=== PATIENT | female | born 1945 | race Caucasian/White ===

== ENCOUNTER 2023-07-08 05:47 | Inpatient (IN) | payer BC, MEDICAID ==
[2023-07-01 15:36] LABS: BASOPHILS % (AUTO) 0.4 % (0-1); EOSINOPHILS # (AUTO) 0.1 X10'3 (0-0.9); EOSINOPHILS % (AUTO) 1.8 % (0-6); LYMPHOCYTES # (AUTO) 2.4 X10'3 (1.1-4.8); LYMPHOCYTES % (AUTO) 29.7 % (21-51); MEAN CORPUSCULAR HEMOGLOBIN 31.4 PG (27.0-31.0); MEAN CORPUSCULAR HGB CONC 33.3 g/dL (33.0-36.5); MEAN CORPUSCULAR VOLUME 94.3 FL (78-98); MEAN PLATELET VOLUME 7.7 FL (7.4-10.4); MONOCYTES # (AUTO) 1.1 X10'3 (0-0.9); MONOCYTES % (AUTO) 13.6 % (2-12); NEUTROPHILS # (AUTO) 4.4 X10'3 (1.8-7.7); NEUTROPHILS % (AUTO) 54.5 % (42-75); PRE OP HEMOGLOBIN 14.7 g/dL (12.0-16.0); PRE OP PLATELET COUNT 245 X10'3 (140-440); RED BLOOD COUNT 4.67 X10'6 (4.20-5.60); RED CELL DISTRIBUTION WIDTH 14.6 % (11.5-14.5)
[2023-07-01 15:55] LABS: ALBUMIN 3.1 G/DL (3.4-5.0); ALBUMIN/GLOBULIN RATIO 0.7 (1.1-1.5); ALKALINE PHOSPHATASE 120 IU/L (46-116); BLOOD UREA NITROGEN 21 MG/DL (7-18); BUN/CREATININE RATIO 18.3 (10.0-20.0); CALCIUM 8.7 MG/DL (8.5-10.1); CHLORIDE 104 MMOL/L (99-107); CREATININE 1.15 MG/DL (0.40-0.90); PRE OP ALT 36 U/L (30-65); PRE OP ANION GAP 7 (8-16); PRE OP AST 29 U/L (10-37); PRE OP BILIRUB, TOTAL 0.4 MG/DL (0.0-1.0); PRE OP GLUCOSE 95 MG/DL (70-104); PRE OP POTASSIUM 3.8 MMOL/L (3.4-5.1); PRE OP SODIUM 138 MMOL/L (135-145); TOTAL CARBON DIOXIDE 26.7 MMOL/L (24-32); TOTAL PROTEIN 7.7 G/DL (6.4-8.2); eGFR 46 ML/MIN
[2023-07-08] VITALS (15 sets, daily range): BP systolic 139–167; BP diastolic 64–67; PULSE 50–96; RESP 16–24; TEMP 97–98.8; O2SAT 81–96
[~2023-07-08] VITALS: Ht 165.1 cm; Wt 91.7 kg
[~2023-07-08 05:47] MED LIST: ACET-1025 PO; ATOR20TA66 PO; CALCIUM; CLOP75TA34 PO; COQ10; DOCUMENT DATE & TIME OF BETA-BLOCKER PO ONE; EZET10TA48 PO; FAMO20TA8 PO; FISH OIL; FLUO20TA28 PO; FLUT1BLS4 INH; FURO20TA4 PO; GLUC-95 PO; HYDR-4070 PO; INDLA60C PO; INDOCYANINE GREEN 25 MG/10 ML VIAL IV ONE; IRBE300T18 PO; MELATONIN; MVI; POTASSIUM GLUCONATE; PRIM50TA5 PO; albuterol 2.5 MG/3 ML nebule NEB ONE; clindamycin-Cleocin 900mg/D5W 50 ML IV ONE; famotidine 20mg tablet PO ONE; ringers solution, lacted 1,000 ML IV SCH
[2023-07-08] MEDS ORDERED: LIDOcaine 1% (10mg/ml)w/preservative inj. 20ml MDV ONE (06:43)
[2023-07-08] MEDS ORDERED: BUPIVAcaine/PF 2.5mg/ml (0.25%) 10ml vial ONE (06:43)
[2023-07-08] MEDS ORDERED: acetaminophen 325mg tablet PO PRN (12:20)
[2023-07-08] MEDS ORDERED: ondansetron/PF 4mg/2ml inj IV PRN (12:20)
[2023-07-08] MEDS ORDERED: magnesium 2GM in 50ml NS 50 ML IV PRN (12:20)
[2023-07-08] MEDS ORDERED: magnesium Cl slow-release 64mg tablet PO PRN (12:20)
[2023-07-08] MEDS ORDERED: mag hydrox/Alum hydrox/simeth 30ml oral suspension PO PRN (12:20)
[2023-07-08] MEDS ORDERED: magnesium 4gm in 100ml NS 100 ML IV PRN (12:20)
[2023-07-08] MEDS ORDERED: magnesium hydroxide 30ml (MOM) UD suspension PO PRN (12:20)
[2023-07-08] MEDS ORDERED: ondansetron 4mg rapidly disintigrating tab PO PRN (12:20)
[2023-07-08] MEDS ORDERED: potassium Cl 40MEQ/1/2NS 520ml 520 ML IV PRN (12:20)
[2023-07-08] MEDS ORDERED: potassium Cl 20 mEq SR tablet PO PRN ×2 (12:20)
[2023-07-08] MEDS ORDERED: HYDROcodone/acetaminophen 5mg/325mg tablet PO PRN (12:20)
--- NOTE | 2023-07-08 13:00 | NUR ---
Patient in room PAS IN 901. I have received report from carlos ellis and had the opportunity to ask questions and assume patient care.
--- NOTE | 2023-07-08 13:10 | NUR ---
RT TX ORDERED FOR PRE-OP, RT HERE TO GIVE TX AND CHECKED PTS SA02, IT WAS 82-84% ON ROOM AIR, RT CHECKED IT AGAINST HER OXIMETER AND CAME UP W/THE SAME O2 SATS, BREATHING TX GIVEN W/O MUCH IMPROVEMENT TO 02 SAT. PT PLACED ON 2 LITERS NC FOR SA02 94%. DR BAUER AND DR SHABAZZ UPDATED, BOTH MD'S IN TO SEE PT, DECISION TO CANCEL SURGERY AND HAVE PT ADMITTED PER HOSPITALIST. DR AVERY IN TO SEE PT. PT WAS IN PAS UNTIL 13:00 ON NC 2 LITERS ON CONTINUOUS PULSE OX W/SA02 92-96%. PT UP FOR VOID X 2 WHILE IN PAS. PT TRANSFERRED W/GLASSES AND CLOTHING VIA W/C ON 02, 2 LITERS TO ROOM 4012B. BLL, CALL LIGHT GIVEN, SIDE RAILS UP X 2, RECEIVING RN NOTIFIED OF PTS ARRIVAL. Addendum: 07/08/23 at 1404 by Asmita Hidalgo RN Amended: Links added.
--- NOTE | 2023-07-08 13:53 | NUR ---
let resident know that pts bp was 167/65 with a hr of 56. he said we can order a hydralazine po 50 mg once until the pts med rec is completed. he is going to let MD know about this.
[2023-07-08] MEDS ORDERED: hydrALAZINE 25 MG tablet PO ONE (13:55)
[2023-07-08] MEDS ORDERED: CefTRIAXone/D5W-Rocephin 1gm 50 ML IV ONE (14:10)
[2023-07-08] MEDS ORDERED: methylPREDNISolone sod succ 125mg/2ml vial IV ONE (14:10)
[2023-07-08] MEDS ORDERED: ipratropium/albuterol 3ml nebule NEB PRN (14:10)
[2023-07-08] MEDS ORDERED: non-formulary drug (Acetaminophen (Tylenol Extra Strength) 2 TAB) PO PRN (14:25)
[2023-07-08] MEDS: normal saline 1000ml 1,000 ML IV SCH (14:25)
--- NOTE | 2023-07-08 14:28 | NUR ---
waiting on iv abx from pharmacy, they said they are working on it now
[2023-07-08] MEDS: nicotine 21mg patch - 24 hr TD SCH (14:36)
[2023-07-08] MEDS ORDERED: ipratropium/albuterol 3ml nebule NEB SCH (15:00)
[2023-07-08] MEDS: ipratropium/albuterol 3ml nebule NEB SCH ×3 (15:25→23:39)
[2023-07-08] MEDS: azithromycin/NS 500mg/250ml 250 ML IV SCH (15:52)
--- NOTE | 2023-07-08 17:07 | NUR ---
per pharmacist it is ok to give Rocephin when zithro is done since it is daily. medications were not available for time of order.
[2023-07-08] MEDS: acetaminophen 325mg tablet PO PRN (17:37)
--- NOTE | 2023-07-08 19:02 | NUR ---
Problems reprioritized. Patient report given, questions answered & plan of care reviewed with clarence lima rn.
--- NOTE | 2023-07-08 19:05 | NUR ---
Patient in room ORTHO 4012. I have received report from TYM RN and had the opportunity to ask questions and assume patient care.
[2023-07-08] MEDS: K and/or MAG REPLACEMENT MC SCH (20:00)
[2023-07-08] MEDS: methylPREDNISolone sod succ 125mg/2ml vial IV SCH (20:56)
[2023-07-08] MEDS ORDERED: GLUCOSAMINE HCL PO SCH (21:00)
[2023-07-08] MEDS ORDERED: CHONDR SU A NA PO SCH (21:00)
[2023-07-08] MEDS: Fluticasone/Umeclidin/Vilanter (Trelegy Ellipta 100-62.5-25) PO SCH (21:00)
[2023-07-08] MEDS: FLUoxetine 20mg capsule PO SCH (21:01)
[2023-07-08] MEDS: atorvastatin 20mg tablet PO SCH (21:02)
[2023-07-08] MEDS: Melatonin 3mg tablet PO SCH (21:02)
[2023-07-08] MEDS: hydrALAZINE 25 MG tablet PO SCH (21:03)
[2023-07-08] MEDS: primidone 50mg tablet PO SCH (21:04)
[2023-07-08] MEDS: ezetimibe 10mg tablet PO SCH (21:08)
[2023-07-09] VITALS (19 sets, daily range): BP systolic 120–157; BP diastolic 47–63; PULSE 56–75; RESP 16–20; TEMP 97.3–98.6; O2SAT 89–98
[2023-07-09] MEDS: methylPREDNISolone sod succ 125mg/2ml vial IV SCH ×3 (02:34→14:06)
[2023-07-09] MEDS: ipratropium/albuterol 3ml nebule NEB SCH ×6 (03:00→23:34)
--- NOTE | 2023-07-09 06:15 | NUR ---
Problems reprioritized. Patient report given, questions answered & plan of care reviewed with NEMESIO ABRAHAM.
--- NOTE | 2023-07-09 06:30 | NUR ---
Patient in room ORTHO 4012. I have received report from Eun Haq RN and had the opportunity to ask questions and assume patient care.
[2023-07-09] MEDS: CefTRIAXone/D5W-Rocephin 1gm 50 ML IV SCH (07:44)
[2023-07-09] MEDS: normal saline 1000ml 1,000 ML IV SCH (07:45)
[2023-07-09] MEDS ORDERED: famotidine 20mg tablet PO SCH (08:00)
[2023-07-09] MEDS: K and/or MAG REPLACEMENT MC SCH ×2 (08:00→20:00)
--- NOTE | 2023-07-09 08:16 | NUR ---
Student documentation: I have reviewed all interventions, assessments performed and documented by [facility] [employer] Student. Student Medication Administration: For medication-passes by student of [facility] [employer] program in the time frame of 0630 to 1300, medications were reviewed, dispensed, administered and documented per hospital policy. Addendum: 07/09/23 at 1805 by Josy Arreola RN Patient in room ORTHO 4012. I have received report from Eun Haq RN and had the opportunity to ask questions and assume patient care.
[2023-07-09 08:48] LABS: BASOPHILS % (AUTO) 0.1 % (0-1); EOSINOPHILS % (AUTO) 0 % (0-6); HEMATOCRIT 41.6 % (35.0-45.0); HEMOGLOBIN 13.5 g/dl (12.0-16.0); LYMPHOCYTES # (AUTO) 1.6 X10'3 (1.1-4.8); LYMPHOCYTES % (AUTO) 13.2 % (21-51); MEAN CORPUSCULAR HEMOGLOBIN 30.6 PG (27.0-31.0); MEAN CORPUSCULAR HGB CONC 32.5 g/dL (33.0-36.5); MEAN CORPUSCULAR VOLUME 94.1 FL (78-98); MONOCYTES # (AUTO) 0.1 X10'3 (0-0.9); MONOCYTES % (AUTO) 1.1 % (2-12); NEUTROPHILS # (AUTO) 10.4 X10'3 (1.8-7.7); NEUTROPHILS % (AUTO) 85.6 % (42-75); PLATELET COUNT 259 X10'3 (140-440); RED BLOOD COUNT 4.43 X10'6 (4.20-5.60); RED CELL DISTRIBUTION WIDTH 14.5 % (11.5-14.5); WHITE BLOOD COUNT 12.2 X10'3 (4.5-11.0)
[2023-07-09] MEDS: propranolol LA 60 MG cap.SA.24H PO SCH (09:09)
[2023-07-09] MEDS: azithromycin/NS 500mg/250ml 250 ML IV SCH (09:10)
[2023-07-09 09:12] LABS: ALBUMIN 2.8 G/DL (3.4-5.0); ANION GAP 12 (8-16); BLOOD UREA NITROGEN 19 MG/DL (7-18); BUN/CREATININE RATIO 18.4 (10.0-20.0); CHLORIDE 104 MMOL/L (99-107); CREATININE 1.03 MG/DL (0.40-0.90); GLUCOSE 152 MG/DL (70-104); MAGNESIUM 2.3 MG/DL (1.5-2.4); POTASSIUM 4.2 MMOL/L (3.5-5.1); SODIUM 137 MMOL/L (135-145); TOTAL CARBON DIOXIDE 21.1 MMOL/L (24-32); eCRCL 41 ML/MIN; eGFR 52 ML/MIN
[2023-07-09] MEDS: hydrALAZINE 25 MG tablet PO SCH ×2 (09:13→21:47)
[2023-07-09] MEDS: losartan 50mg tablet PO SCH (09:14)
[2023-07-09] MEDS: furosemide 20MG tablet PO SCH (09:15)
[2023-07-09] MEDS: primidone 50mg tablet PO SCH ×2 (09:16→21:47)
[2023-07-09] MEDS: acetaminophen 325mg tablet PO PRN (10:32)
[2023-07-09] MEDS: nicotine 21mg patch - 24 hr TD SCH (10:34)
[2023-07-09] MEDS: HYDROcodone/acetaminophen 10/325mg tab PO PRN (14:41)
--- NOTE | 2023-07-09 18:30 | NUR ---
Patient in room ORTHO 4012. I have received report from NEMESIO ABRAHAM and had the opportunity to ask questions and assume patient care.
[2023-07-09] MEDS: Fluticasone/Umeclidin/Vilanter (Trelegy Ellipta 100-62.5-25) PO SCH (19:52)
[2023-07-09] MEDS: atorvastatin 20mg tablet PO SCH (21:45)
[2023-07-09] MEDS: FLUoxetine 20mg capsule PO SCH (21:48)
[2023-07-09] MEDS: Melatonin 3mg tablet PO SCH (21:58)
[2023-07-09] MEDS: ezetimibe 10mg tablet PO SCH (22:01)
[2023-07-09] MEDS: methylPREDNISolone sod succ/PF 40mg inj. IV SCH (22:58)
[2023-07-10] VITALS (29 sets, daily range): BP systolic 128–189; BP diastolic 57–80; PULSE 53–97; RESP 12–27; TEMP 97.7–98.3; O2SAT 81–98
[2023-07-10] MEDS: normal saline 1000ml 1,000 ML IV SCH ×2 (03:02→20:59)
[2023-07-10] MEDS: ipratropium/albuterol 3ml nebule NEB SCH ×6 (03:16→23:17)
--- NOTE | 2023-07-10 06:28 | NUR ---
Problems reprioritized. Patient report given, questions answered & plan of care reviewed with NEMESIO ABRAHAM.
--- NOTE | 2023-07-10 06:47 | NUR ---
Patient in room ORTHO 4012. I have received report from Eun Haq RN and had the opportunity to ask questions and assume patient care.
[2023-07-10] MEDS: CefTRIAXone/D5W-Rocephin 1gm 50 ML IV SCH (07:20)
[2023-07-10 07:21] LABS: BASOPHILS # (AUTO) 0.1 X10'3 (0-0.2); BASOPHILS % (AUTO) 0.3 % (0-1); EOSINOPHILS % (AUTO) 0 % (0-6); HEMATOCRIT 39.4 % (35.0-45.0); HEMOGLOBIN 12.8 g/dl (12.0-16.0); LYMPHOCYTES # (AUTO) 2.1 X10'3 (1.1-4.8); LYMPHOCYTES % (AUTO) 12.3 % (21-51); MEAN CORPUSCULAR HEMOGLOBIN 30.6 PG (27.0-31.0); MEAN CORPUSCULAR HGB CONC 32.6 g/dL (33.0-36.5); MEAN PLATELET VOLUME 7.8 FL (7.4-10.4); MONOCYTES # (AUTO) 0.8 X10'3 (0-0.9); MONOCYTES % (AUTO) 4.8 % (2-12); NEUTROPHILS # (AUTO) 13.8 X10'3 (1.8-7.7); NEUTROPHILS % (AUTO) 82.6 % (42-75); PLATELET COUNT 243 X10'3 (140-440); RED CELL DISTRIBUTION WIDTH 14.5 % (11.5-14.5); WHITE BLOOD COUNT 16.7 X10'3 (4.5-11.0)
[2023-07-10] MEDS: losartan 50mg tablet PO SCH (07:21)
[2023-07-10] MEDS: furosemide 20MG tablet PO SCH (07:21)
[2023-07-10] MEDS: hydrALAZINE 25 MG tablet PO SCH ×2 (07:22→22:26)
[2023-07-10] MEDS: primidone 50mg tablet PO SCH ×2 (07:22→22:25)
[2023-07-10] MEDS: propranolol LA 60 MG cap.SA.24H PO SCH (07:22)
[2023-07-10] MEDS: methylPREDNISolone sod succ/PF 40mg inj. IV SCH ×2 (07:24→22:45)
[2023-07-10 07:32] LABS: APTT 28 SECONDS (22-32)
[2023-07-10 07:42] LABS: ALANINE AMINOTRANSFERASE 26 U/L (12-78); ALBUMIN 2.7 G/DL (3.4-5.0); ALBUMIN/GLOBULIN RATIO 0.7 (1.1-1.5); ALKALINE PHOSPHATASE 98 IU/L (46-116); ANION GAP 8 (8-16); ASPARTATE AMINO TRANSFERASE 20 U/L (10-37); BILIRUBIN,TOTAL 0.3 MG/DL (0.1-1.0); BLOOD UREA NITROGEN 22 MG/DL (7-18); BUN/CREATININE RATIO 22.7 (10.0-20.0); CALCIUM 8.6 MG/DL (8.5-10.1); CHLORIDE 105 MMOL/L (99-107); CREATININE 0.97 MG/DL (0.40-0.90); GLUCOSE 135 MG/DL (70-104); MAGNESIUM 2.3 MG/DL (1.5-2.4); POTASSIUM 4.2 MMOL/L (3.5-5.1); SODIUM 138 MMOL/L (135-145); TOTAL CARBON DIOXIDE 24.8 MMOL/L (24-32); TOTAL PROTEIN 6.8 G/DL (6.4-8.2); eCRCL 43 ML/MIN; eGFR 56 ML/MIN
[2023-07-10] MEDS: K and/or MAG REPLACEMENT MC SCH ×2 (07:55→20:00)
[2023-07-10] MEDS: azithromycin/NS 500mg/250ml 250 ML IV SCH (09:08)
[2023-07-10] MEDS: nicotine 21mg patch - 24 hr TD SCH (09:09)
[2023-07-10] MEDS ORDERED: INDOCYANINE GREEN 25 MG/10 ML VIAL IV ONE (12:20)
[2023-07-10] MEDS ORDERED: ondansetron/PF 4mg/2ml inj IV PRN (13:10)
[2023-07-10] MEDS ORDERED: morphine 2 MG/ML inj. syringe IV PRN (13:10)
[2023-07-10] MEDS ORDERED: morphine 4 MG/ML inj SYRINge IV PRN (13:10)
[2023-07-10] MEDS ORDERED: ringers solution, lacted 1,000 ML IV SCH (13:10)
[2023-07-10] MEDS ORDERED: fentaNYL/PF 50MCG/1 ML 2ML syringe IV PRN ×2 (13:10)
[2023-07-10] MEDS ORDERED: labetalol 20mg/4ml (5mg/ml) syringe IV PRN (13:10)
[2023-07-10] MEDS ORDERED: hydrALAZINE 20mg/ml inj. IV PRN (13:10)
[2023-07-10] MEDS ORDERED: desflurane 240ml liquid inh. IH ONE (15:25)
[2023-07-10] MEDS ORDERED: dexamethasone sod phosphate 10mg/ml inj ONE (15:25)
[2023-07-10] MEDS ORDERED: ondansetron/PF 4mg/2ml inj ONE (15:35)
[2023-07-10] MEDS ORDERED: rocuronium 10mg/ml inj IV ONE (15:35)
[2023-07-10] MEDS ORDERED: fentaNYL/PF 50MCG/1 ML 2ML syringe ONE (15:35)
[2023-07-10] MEDS ORDERED: LIDOcaine 1%/PF 5ML 10 MG/ML VIAL ONE (15:35)
[2023-07-10] MEDS ORDERED: propofol inj 20 ML IV ONE (15:35)
[2023-07-10] MEDS ORDERED: sugammadex 200mg/2ml injection IV ONE (15:44)
[2023-07-10] MEDS ORDERED: LIDOcaine 1% (10mg/ml)w/preservative inj. 20ml MDV ONE (15:44)
[2023-07-10] MEDS ORDERED: BUPIVAcaine/PF 2.5mg/ml (0.25%) 10ml vial ONE (15:44)
[2023-07-10] MEDS ORDERED: LIDOcaine 1% 30ml preserv. free vial IJ ONE (16:11)
--- NOTE | 2023-07-10 16:44 | NUR ---
Received from OR via BED, accompanied by Anesthesiologist DR. POTTER and report given by Anesthesiologist. PATIENT WAKING UP, NO S/S OF PAIN, V/S WNL, SCD ON, 20G TO LFA, ABDOMEN LAP SITE CLEAN W/ NO S/S OF COMPLICATIONS
--- NOTE | 2023-07-10 17:24 | NUR ---
PATIENT HAS MET ALL CRITERIA FOR TRANSFER TO THE FLOOR. VSS. PT DENIES PAIN. DRESSINGS [facility]I INTACT. SCDS ON RIGHT LEG. BED LOW, CALL LIGHT PRESENT AND 2 RAILS UP. RN PRESENT TO ACCEPT CARE OF PATIENT AND REPORT HAS BEEN CALLED. ALL QUESTIONS ANSWERED TO ACCEPTING RNMARLYN.
[2023-07-10] MEDS: HYDROcodone/acetaminophen 10/325mg tab PO PRN ×2 (17:43→22:25)
--- NOTE | 2023-07-10 17:47 | NUR ---
Unable to give 1500 SVN treatment due to patient being in surgery.
[2023-07-10] MEDS: Fluticasone/Umeclidin/Vilanter (Trelegy Ellipta 100-62.5-25) PO SCH (21:00)
[2023-07-10] MEDS: atorvastatin 20mg tablet PO SCH (22:25)
[2023-07-10] MEDS: Melatonin 3mg tablet PO SCH (22:25)
[2023-07-10] MEDS: ezetimibe 10mg tablet PO SCH (22:27)
[2023-07-10] MEDS: docusate sod 100mg capsule PO PRN (22:27)
[2023-07-10] MEDS: FLUoxetine 20mg capsule PO SCH (22:27)
[2023-07-11] VITALS (13 sets, daily range): BP systolic 154–177; BP diastolic 53–68; PULSE 51–65; RESP 16–22; TEMP 97–98.7; O2SAT 91–97
[2023-07-11] MEDS: ipratropium/albuterol 3ml nebule NEB SCH ×4 (03:17→15:28)
[2023-07-11 06:45] LABS: BASOPHILS % (AUTO) 0.4 % (0-1); EOSINOPHILS % (AUTO) 0 % (0-6); HEMATOCRIT 39.5 % (35.0-45.0); LYMPHOCYTES # (AUTO) 1.7 X10'3 (1.1-4.8); LYMPHOCYTES % (AUTO) 12.9 % (21-51); MEAN CORPUSCULAR HEMOGLOBIN 31.2 PG (27.0-31.0); MEAN CORPUSCULAR HGB CONC 32.8 g/dL (33.0-36.5); MEAN CORPUSCULAR VOLUME 95.1 FL (78-98); MEAN PLATELET VOLUME 7.3 FL (7.4-10.4); MONOCYTES # (AUTO) 0.5 X10'3 (0-0.9); MONOCYTES % (AUTO) 4.1 % (2-12); NEUTROPHILS # (AUTO) 10.6 X10'3 (1.8-7.7); NEUTROPHILS % (AUTO) 82.6 % (42-75); PLATELET COUNT 237 X10'3 (140-440); RED BLOOD COUNT 4.15 X10'6 (4.20-5.60); RED CELL DISTRIBUTION WIDTH 14.9 % (11.5-14.5); WHITE BLOOD COUNT 12.8 X10'3 (4.5-11.0)
[2023-07-11 06:56] LABS: ALBUMIN 2.7 G/DL (3.4-5.0); ANION GAP 7 (8-16); BLOOD UREA NITROGEN 25 MG/DL (7-18); BUN/CREATININE RATIO 22.7 (10.0-20.0); CALCIUM 8.6 MG/DL (8.5-10.1); CHLORIDE 105 MMOL/L (99-107); GLUCOSE 123 MG/DL (70-104); MAGNESIUM 2.3 MG/DL (1.5-2.4); POTASSIUM 4.2 MMOL/L (3.5-5.1); SODIUM 139 MMOL/L (135-145); TOTAL CARBON DIOXIDE 27.3 MMOL/L (24-32); eCRCL 38 ML/MIN; eGFR 48 ML/MIN
--- NOTE | 2023-07-11 07:15 | NUR ---
Patient in room ORTHO 4012. I have received report from Eun Haq RN and had the opportunity to ask questions and assume patient care.
[2023-07-11] MEDS: K and/or MAG REPLACEMENT MC SCH (07:52)
[2023-07-11] MEDS ORDERED: azithromycin 250mg tablet PO SCH (08:00)
[2023-07-11] MEDS ORDERED: famotidine 20mg tablet PO SCH (08:00)
[2023-07-11] MEDS: furosemide 20MG tablet PO SCH (08:01)
[2023-07-11] MEDS: CefTRIAXone/D5W-Rocephin 1gm 50 ML IV SCH (08:03)
[2023-07-11] MEDS: methylPREDNISolone sod succ/PF 40mg inj. IV SCH (08:03)
[2023-07-11] MEDS: HYDROcodone/acetaminophen 10/325mg tab PO PRN (08:04)
[2023-07-11] MEDS: docusate sod 100mg capsule PO PRN (08:04)
[2023-07-11] MEDS: hydrALAZINE 25 MG tablet PO SCH (08:07)
[2023-07-11] MEDS: losartan 50mg tablet PO SCH (08:08)
[2023-07-11] MEDS: propranolol LA 60 MG cap.SA.24H PO SCH (08:09)
[2023-07-11] MEDS: primidone 50mg tablet PO SCH (08:22)
[2023-07-11] MEDS: nicotine 21mg patch - 24 hr TD SCH (09:44)
[2023-07-11] MEDS: normal saline 1000ml 1,000 ML IV SCH (13:01)
--- NOTE | 2023-07-11 13:14 | NUR ---
O2 Sat at rest on room air:84% If below 89%: Recovery O2 Sat at rest on _4__LPM:__89_%:___% via nc (mask/nasal cannula, etc..) No further documentation is necessary. If O2 Sat did not drop below 89% on room air,ambulate patient on room air. O2 Sat while ambulating on room air:___% Recovery O2 Sat while ambulating on ___LPM:___% No further documentation is necessary. If patient does not drop below 89% while ambulating, he/she does not qualify for home O2.
--- NOTE | 2023-07-11 13:34 | NUR ---
Initial: Pt admit for elective laparoscopic cholecystectomy. Per resident progress notes pt with acute on chronic hypoxemic respiratory failure likely secondary to COPD exacerbation, RLL infiltrate, NORIS, and cholelithiasis. Pt currently POD #1 s/p laparoscopic cholecystectomy. Diet has fluctuated NPO versus heart healthy throughout LOS. When pt has a diet she eats well, documented with average 78% PO intake of meals which is sufficient in meeting estimated nutrient needs. LBM 07/07 per EMR. Pt does not have routine bowel care available though has received PRN Colace 07/10 and 07/11 per EMR. PRN MoM also available. D/w dietary to send prunes and prune juice with next meal to further assist with a BM. Will continue to follow and monitor need for additional nutrition intervention. Recommendations: 1) Continue heart healthy diet 2) Routine and PRN bowel care 3) Weekly scaled weights Addendum: 07/11/23 at [address] Amended: Links added.
[2023-07-11] MEDS ORDERED: NICO-687 TD (15:31)
[2023-07-11] MEDS ORDERED: LEVO-65 PO (15:34)
--- NOTE | 2023-07-11 19:28 | NUR ---
Pts discharge instructions given to pt and family memberc they have no questions. Pt d/cd with home o2 and all belongings, IV dcd with canula intact.
[2023-07-11] MEDS ORDERED: methylPREDNISolone sod succ/PF 40mg inj. IV SCH (20:00)
== END 2023-07-11 19:28 | disposition home health service (06) | DRG 417 ==
LOC: PAS 05:47 → PAS IN 10:12 → ORTHO 4S 13:30
PROVIDERS: ADMIT Surgery; ATTEND Surgery
PROC: 8E0W4CZ Robotic Assisted Procedure of Trunk Region, Percutaneous Endoscopic Approach (ICD-10-PCS; 2023-07-10)
PROC: BF522Z0 Other Imaging of Gallbladder using Fluorescing Agent, Intraoperative (ICD-10-PCS; 2023-07-10)
PROC: 0FT44ZZ Resection of Gallbladder, Percutaneous Endoscopic Approach (ICD-10-PCS; principal; 2023-07-10 15:25)
DX: K80.20 Calculus of gallbladder without cholecystitis without obstruction (principal); J18.9 Pneumonia, unspecified organism; J96.21 Acute and chronic respiratory failure with hypoxia; N17.0 Acute kidney failure with tubular necrosis; J44.1 Chronic obstructive pulmonary disease with (acute) exacerbation; J44.0 Chronic obstructive pulmonary disease with (acute) lower respiratory infection; E78.5 Hyperlipidemia, unspecified; I10 Essential (primary) hypertension; Z66 Do not resuscitate; I73.9 Peripheral vascular disease, unspecified; I25.10 Atherosclerotic heart disease of native coronary artery without angina pectoris; F17.210 Nicotine dependence, cigarettes, uncomplicated; Z90.710 Acquired absence of both cervix and uterus; Z88.0 Allergy status to penicillin; Z88.8 Allergy status to other drugs, medicaments and biological substances
CPT/HCPCS: 36415; 71046; 80048; 80053; 82948; 83735; 85025; 85610; 85730; 87081; 88304; 93005; 94640; 94760; 97116; 97161; 97164; 97530; A4215; A4615; A4618; A7000; G0378; J0360; J0456; J0696; J1100; J2405; J2704; J2920; J2930; J3010; J3490; J7030; J7120